=== PATIENT | male | born 1980 | race Caucasian/White ===

== ENCOUNTER 2020-07-15 01:59 | Emergency (ER) | payer MEDICAID ==
[~2020-07-15] VITALS: Ht 180.3 cm; Wt 76.7 kg
[2020-07-15 02:09] VITALS: BP 127/68
[2020-07-15 03:07] VITALS: BP 127/68
== END 2020-07-15 03:07 | disposition home or self-care (01) ==
LOC: MED 01:59
DX: R42 Dizziness and giddiness (principal); J45.909 Unspecified asthma, uncomplicated
CPT/HCPCS: 99283

== ENCOUNTER 2020-09-01 23:21 | Emergency (ER) | payer MEDICAID ==
[~2020-09-01] VITALS: Ht 185.4 cm; Wt 90.7 kg
--- NOTE | 2020-09-01 23:32 | NUR ---
BIBA TAKEN TO BED #5. [place] [employer] AT BEDSIDE.
[2020-09-01 23:33] VITALS: BP 137/77
--- NOTE | 2020-09-01 23:35 | NUR ---
39/M BIB [place] [employer]. PT ON 5150 HOLD FOR BEING GRAVELY DISABLED. PT WAS REFUSING TO LEAVE [employer] AND STARTED REMOVING HIS CLOTHES TO GET RID OF THE "SNAKES". PT AOX2, AMBULATORY, ABLE TO MAKE NEEDS KNOWN. PT DENIES ANY SUICIDAL IDEATIONS OR ANY DRUG USE. PT CALM AND COOPERATIVE TO CARE WITH EPISODES OF REMOVING CLOTHES. PT CHANGED TO GOWN, ROOM STRIPPED, SAFETY MEASURES IN PLACE. WILL CONTINUE TO MONITOR. PMH: BIPOLAR, SCHIZOPHRENIA NKA
[2020-09-01] MEDS ORDERED: diphenhydrAMINE 50 MG/ML VIAL IM ONE (23:55)
--- NOTE | 2020-09-01 23:55 | NUR ---
PT C/O ITCHING TO OLD WOUNDS SITES. ERMD MADE AWARE, VERBAL ORDER FOR BENADRYL 50MG IM RECEIVED AND CARRIED OUT.
--- NOTE | 2020-09-02 00:43 | NUR ---
Patient being evaluated by physician at bedside.
[2020-09-02 01:08] LABS: BASOPHILS # (AUTO) 0.1 K/uL (0.00-0.22); BASOPHILS % (AUTO) 0.7 % (0.0-2.0); EOSINOPHILS # (AUTO) 0.2 K/uL (0-0.4); EOSINOPHILS % (AUTO) 2.3 % (0.0-4.0); HEMATOCRIT 44.2 % (36-52); HEMOGLOBIN 15.1 g/dL (12.0-18.0); LYMPHOCYTES # (AUTO) 2.3 K/uL (2.0-11.5); MEAN CORPUSCULAR HEMOGLOBIN 30 pg (27-31); MEAN CORPUSCULAR HGB CONC 34 g/dL (33-37); MEAN CORPUSCULAR VOLUME 89.1 fL (80-94); MONOCYTES # (AUTO) 1.2 K/uL (0.8-1.0); MONOCYTES % (AUTO) 11.4 % (1.7-9.3); NEUTROPHILS # (AUTO) 6.8 K/uL (1.8-7.7); NEUTROPHILS % (AUTO) 63.6 % (42.2-75.2); PLATELET COUNT (AUTO) 320 K/uL (140-450); RED BLOOD CELL COUNT(AUTO) 4.96 MIL/uL (4.20-6.10); RED CELL DISTRIBUTION WIDTH 14.7 % (11.6-13.7); WHITE BLOOD COUNT (AUTO) 10.7 K/uL (4.8-10.8)
[2020-09-02] MEDS ORDERED: LORazepam 2 MG/ML VIAL IM ONE (01:10)
[2020-09-02] MEDS ORDERED: HALOPERIDOL IM 5 MG/ML VIAL IM ONE (01:10)
[2020-09-02] MEDS ORDERED: diphenhydrAMINE 50 MG/ML VIAL IM ONE (01:10)
[2020-09-02 01:24] LABS: ALBUMIN 4.2 g/dL (3.4-5.0); ANION GAP 13.2 (8-16); ASPARTATE AMINOTRANSFERASE 48 U/L (15-37); CARBON DIOXIDE 29.5 mmol/L (21-32); CHLORIDE 103 mmol/L (98-107); CREATININE 0.9 mg/dL (0.6-1.3); GFR ARICAN-AMERICAN 122 mL/min (>90); GLUCOSE 100 mg/dL (74-106); POTASSIUM 3.7 mmol/L (3.5-5.1); SODIUM SERUM 142 mmol/L (136-145); TOTAL BILIRUBIN 0.8 mg/dL (0.0-1.0); UREA NITROGEN, BLOOD 18 mg/dL (7-18)
--- NOTE | 2020-09-02 01:42 | NUR ---
PT CONSTANTLY REMOVING GOWN AND SCRATCHING WOUND. ORDERED MEDS GIVEN. WILL CONTINUE TO MONITOR.
[2020-09-02 02:22] LABS: BARBITURATE, URINE NEGATIVE ng/ml (NEG <=200); BENZODIAZEPINE, URINE NEGATIVE ng/mL (NEG <=200); CANNABINOID, URINE NEGATIVE ng/mL (NEG <=50); COCAINE, URINE NEGATIVE ng/mL (NEG <=300); OPIATE, URINE NEGATIVE ng/mL (NEG <=2000); PHENCYCLIDINE SCREEN,URINE NEGATIVE ng/mL (NEG <=25)
--- NOTE | 2020-09-02 04:00 | NUR ---
VS STABLE. PT SLEEPING COMFORTABLY. PT NOT IN DISTRESS. VISIBLE CHEST RISE AND FALL NOTED. PT KEPT COMFORTABLE. SAFETY MEASURES IN PLACE. WILL CONTINUE TO MONITOR.
--- NOTE | 2020-09-02 06:35 | NUR ---
ASLEEP. RESPIRAITONS EVEN AND UNLABORED. NO S/X OF DISTRESS NOTED. PT KEPT COMFORTABLE. SAFETY MEASURES IN PLACE. WILL CONTINUE TO MONITOR.
--- NOTE | 2020-09-02 07:20 | NUR ---
Patient appears to be resting comfortably in bed. Vital Signs within normal limits. Respirations even and unlabored.
--- NOTE | 2020-09-02 08:45 | NUR ---
Patient appears to be resting comfortably in bed. Vital Signs within normal limits. Respirations even and unlabored.
--- NOTE | 2020-09-02 10:15 | NUR ---
PATIENT EATING BREAKFAST THAT WAS BROUGHT IN
--- NOTE | 2020-09-02 11:45 | NUR ---
Patient appears to be resting comfortably in bed. Vital Signs within normal limits. Respirations even and unlabored.
--- NOTE | 2020-09-02 12:28 | NUR ---
Dr. Cristobal is evaluating the patient at bedside.
--- NOTE | 2020-09-02 12:32 | NUR ---
pt awake and eating lunch after seen by Dr. Cristobal
--- NOTE | 2020-09-02 13:00 | NUR ---
[facility] received packet. Aware patient is pending PCR results.
--- NOTE | 2020-09-02 13:06 | NUR ---
[facility]
--- NOTE | 2020-09-02 13:18 | NUR ---
Patient given written and verbal discharge instructions and verbalizes understanding. Given copies of tests performed during visit. Patient is awake, alert and oriented. Ambulatory with steady gait. Refuses offer of group home placement. Given list of available shelters in surrounding areas. Patient discharged with v/s stable. ID band removed. Written and verbal after care instructions given and explained. Patient verbalized understanding. Ambulatory with steady gait. All questions addressed prior to discharge. Advised to follow up with PMD.
[2020-09-02 13:19] VITALS: BP 126/78
== END 2020-09-02 13:18 | disposition home or self-care (01) ==
LOC: MED 23:21
DX: F29 Unspecified psychosis not due to a substance or known physiological condition (principal); Z20.822 Contact with and (suspected) exposure to COVID-19; J45.909 Unspecified asthma, uncomplicated; F20.9 Schizophrenia, unspecified
CPT/HCPCS: 36415; 80053; 80305; 85025; 87426; 93005; 96372; 99285; G0482; J1200; J1630; J2060; U0003

== ENCOUNTER 2022-03-01 04:08 | Emergency (ER) | payer MEDICAID ==
[~2022-03-01] VITALS: Ht 182.9 cm; Wt 113.4 kg
[2022-03-01 04:15] VITALS: BP 142/90
--- NOTE | 2022-03-01 04:17 | NUR ---
BIBA TAKEN TO BED #6
[2022-03-01] MEDS ORDERED: LORazepam 1 MG TAB PO ONE (04:25)
--- NOTE | 2022-03-01 04:30 | NUR ---
COVID SWAB COLLECTED AND SENT TO LAB
--- NOTE | 2022-03-01 04:34 | NUR ---
PTs BELONGINGS GATHERED BY SECURITY
--- NOTE | 2022-03-01 04:35 | NUR ---
ASSUMED CARE OF PT AT THIS TIME. SEE ASSESSMENT
--- NOTE | 2022-03-01 05:45 | NUR ---
BLOOD/URINE COLLECTED AND SENT TO LAB
--- NOTE | 2022-03-01 06:30 | NUR ---
PT RESTING, CALM, COOPERATIVE. AWAITING RESULTS. WILL CONTINUE TO MONITOR.
[2022-03-01 06:34] LABS: ALBUMIN 3.6 g/dL (3.4-5.0); ASPARTATE AMINOTRANSFERASE 58 U/L (15-37); CARBON DIOXIDE 27.2 mmol/L (21-32); CREATININE 0.9 mg/dL (0.6-1.3); GFR ARICAN-AMERICAN 121 mL/min (>90); GLUCOSE 101 mg/dL (74-106); TOTAL BILIRUBIN 0.7 mg/dL (0.0-1.0); UREA NITROGEN, BLOOD 16 mg/dL (7-18)
[2022-03-01 06:39] LABS: BASOPHILS % (AUTO) 0.5 % (0.0-2.0); EOSINOPHILS # (AUTO) 0.3 K/uL (0-0.4); EOSINOPHILS % (AUTO) 3.6 % (0.0-4.0); HEMATOCRIT 42.6 % (36-52); HEMOGLOBIN 14.7 g/dL (12.0-18.0); LYMPHOCYTES # (AUTO) 1.4 K/uL (2.0-11.5); LYMPHOCYTES % (AUTO) 17.6 % (20.5-51.1); MEAN CORPUSCULAR HEMOGLOBIN 30 pg (27-31); MEAN CORPUSCULAR HGB CONC 35 g/dL (33-37); MEAN CORPUSCULAR VOLUME 87.5 fL (80-94); MONOCYTES # (AUTO) 0.9 K/uL (0.8-1.0); MONOCYTES % (AUTO) 11.2 % (1.7-9.3); NEUTROPHILS # (AUTO) 5.3 K/uL (1.8-7.7); NEUTROPHILS % (AUTO) 67.1 % (42.2-75.2); PLATELET COUNT (AUTO) 296 K/uL (140-450); RED BLOOD CELL COUNT(AUTO) 4.87 MIL/uL (4.20-6.10); RED CELL DISTRIBUTION WIDTH 13.6 % (11.6-13.7); WHITE BLOOD COUNT (AUTO) 7.9 K/uL (4.8-10.8)
[2022-03-01 06:44] LABS: ACETAMINOPHEN < 0.5 ug/ml (10-30); SALICYLATE < 2.8 mg/dL (2.8-20.0)
[2022-03-01 07:20] LABS: ANION GAP 13.4 (8-16); CHLORIDE 100 mmol/L (98-107); POTASSIUM 3.6 mmol/L (3.5-5.1); SODIUM SERUM 137 mmol/L (136-145)
--- NOTE | 2022-03-01 07:30 | NUR ---
REPORT RECEIVED FROM TYRA DALLAS . ASSUMED CARE AT THIS TIME
--- NOTE | 2022-03-01 07:35 | NUR ---
pt sitting in chair. at rest w/ eyes closed. respirations even and unlabored
--- NOTE | 2022-03-01 09:25 | NUR ---
PT ON TELEPSYCH CALL W/ MD DOWLING
--- NOTE | 2022-03-01 09:32 | NUR ---
PER MD DOWLING. PT OK FOR D/C ONCE MEDICALLY CLEARED . NO HOLD AT THIS TIME. MD VEGA MADE AWARE new rx of risperidone 1mg bid
[2022-03-01 09:57] VITALS: BP 143/70
--- NOTE | 2022-03-01 09:57 | NUR ---
Patient discharged with v/s stable. Written and verbal after care instructions given and explained. Patient verbalized understanding. Ambulatory with steady gait. All questions addressed prior to discharge. Advised to follow up with PMD.
[2022-03-01] MEDS ORDERED: risperiDONE 1 MG TAB PO SCH (21:00)
== END 2022-03-01 09:57 | disposition home or self-care (01) ==
LOC: MED 04:08
DX: F15.10 Other stimulant abuse, uncomplicated (principal); Z20.822 Contact with and (suspected) exposure to COVID-19; R45.851 Suicidal ideations; M25.561 Pain in right knee; M25.562 Pain in left knee; J45.909 Unspecified asthma, uncomplicated
CPT/HCPCS: 36415; 80053; 81002; 85025; 87426; 87635; 99283; C9803; G0480; G0482

== ENCOUNTER 2022-04-16 20:08 | Emergency (ER) | payer MEDICAID ==
[~2022-04-16] VITALS: Ht 185.4 cm; Wt 81.6 kg
--- NOTE | 2022-04-16 20:11 | NUR ---
Patient being evaluated by physician ON [facility]
[2022-04-16 20:15] VITALS: BP 152/107
[2022-04-16] MEDS ORDERED: diphenhydrAMINE 50 MG CAP PO ONE (20:15)
--- NOTE | 2022-04-16 20:22 | NUR ---
PT REMOVED PANTS IN HALLWAY STATES SNAKES ARE BITING HIM. PT IS IN RR. SECURITY CALLED.
[2022-04-16 22:00] VITALS: BP 152/107
--- NOTE | 2022-04-16 22:00 | NUR ---
PT PROVIDED WITH CLOTHES, REFUSED TO PUT CLOTHES ON. SECURITY NEXT TO RR.
--- NOTE | 2022-04-16 23:00 | NUR ---
PT REFUSES TO PUT CLOTHES ON, PD CALLED.
--- NOTE | 2022-04-16 23:07 | NUR ---
JASWANT FERNANDEZ ARRIVED
--- NOTE | 2022-04-16 23:39 | NUR ---
PATIENT BIB [employer]. PATIENT EXAMINED BY DR. RODRÍGUEZ. PATIENT MEDICALLY CLEARED AND RELEASED IN CUSTODY IN STABLE CONDITION. ORIGINAL PRE-BOOK FORM GIVEN TO OFFICER ARJUN.
== END 2022-04-16 22:00 | disposition home or self-care (01) ==
LOC: MED 20:08
DX: R44.3 Hallucinations, unspecified (principal); J45.909 Unspecified asthma, uncomplicated
CPT/HCPCS: 99283; Q0163